=== PATIENT | male | born 1985 | race Caucasian/White ===

== ENCOUNTER 2017-05-17 08:40 | Day surgery (SDC) | payer OTHER ==
[~2017-05-17] VITALS: Ht 185.4 cm; Wt 93.0 kg
[~2017-05-17 08:40] MED LIST: VENLAFAXINE H37.5 M1 PO
--- NOTE | 2017-05-17 11:28 | NUR ---
05/17/17 1128 Yamel Sepulveda REPORT FROM ANALYTICAL MANAGER.
--- NOTE | 2017-05-17 12:29 | NUR ---
PT RETURNED FROM PACU. AWAKE AND ORIENTED. PT DENIES NAUSEA, TOLERATING PO FLUIDS. PT REPORTING 5/10 PAIN (SEE MAR FOR MEDICATION GIVEN). BED RAILS UP, CALL LIGHT WITHIN REACH. ICE ON OPERATIVE EXTREMITY AND EXTREMITY ABOVE THE LEVEL OF HEART RESTING ON PILLOWS.
--- NOTE | 2017-05-17 13:31 | NUR ---
1330-PATIENT UP TO BATHROOM VOIDED 450 ML'S YELLOW URINE. STEADY ON FEET. PATIENT REPORTS PAIN HAS DECREASED TO 5/10 AFTER BEING GIVEN PAIN PILL REPORTS COMFORTABLE. WATER AND CRACKERS GIVEN. PATIENT DENIES ANY REQUESTS AT THIS TIME.
--- NOTE | 2017-05-17 14:10 | NUR ---
PT STEADY ON FEET WITH ONE PERSON STAND BY ASSIST. PT REPORTING 4/10 PAIN THAT HE STATES IS TOLERABLE. PT DRESSES SELF. FRIEND AT BEDSIDE FOR DISCHARGE INSTRUCTIONS. PT AND FRIEND VERBALIZES UNDERSTANDING OF DISCHARGE INSTRUCTIONS.
--- NOTE | 2017-05-17 14:15 | OR ---
[facility] [address], [place] [address] Signed DATE OF PROCEDURE: 05/17/17 PREOPERATIVE DIAGNOSIS -punch fracture of the distal right radius with about 4 mm of lunate fossa impaction. POSTOPERATIVE DIAGNOSIS -punch fracture of the distal right radius with about 4 mm of lunate fossa impaction. PROCEDURE Open reduction and internal fixation, right wrist fracture. SURGEON: Aramis Woodward MD. ANESTHESIA: General. There were no specimens or complications. TOURNIQUET TIME: A little bit over an hour. DESCRIPTION OF PROCEDURE The patient was taken to the operating room. After anesthesia was induced and airway secured, the patient was positioned, prepped and draped in a routine sterile fashion. The arm was exsanguinated and Esmarch bandage, pneumatic tourniquet was inflated to 250 mmHg pressure. A volar incision was made directly over the distal radius in line with the FCR tendon, beginning at the distal wrist flexion crease extending proximally about 8 cm. Skin was divided sharply. Subcutaneous tissue was bluntly spread. The FCR tendon sheath was opened on the volar surface. We then swept the FCR and the volar contents in an ulnar direction and opened the deep layer. A small self-retaining retractor was placed and we elevated a small portion of the pronator off the distal radius. The fracture site was identified. It begin to partially consolidate. We therefore gently mobilized with some small Drew osteotomes. Once we gently mobilized with counter, we were actually able to move the articular fragment distally until we had reconstituted the articular surface. However, actually did a small release of the volar capsule and actually could see that we had realigned the articular surface. We then held it with a single bone-holding clamp and then secured it temporarily with a single 1.6 mm K-wire. Having temporarily fixed it, we then secured it permanently with an 8 x 3 distal volar radial plate. We will place 2 pins in the lateral articular fragment and we placed 1 pin in the proximal fragment that was still attached to the shaft. We then secured it with 3 screws proximally. The wound was gently irrigated. AP and lateral fluoroscopy showed good alignment and position of the fracture fragments and the internal fixation device. The patient's wound was irrigated, closed in standard fashion and a sterile dressing applied. He was placed in a volar splint, awakened to the recovery room where arrived in Electronically Signed By: ARAMIS WOODWARD MD 05/17/17 1415 PATIENT NAME: ALEENA DICKSON OPERATIVE REPORT DATE OF : 87 PHYSICIAN: ARAMIS WOODWARD MD REPORT #: [id number] REPORT IS CONFIDENTIAL AND NOT TO BE RELEASED WITHOUT AUTHORIZATION [facility] [address] [place] [id number] Signed stable condition. Counts were correct and antibiotic protocols were followed. MD CALEB Baugh/Coty /[id number] cc: SYLVIA Robles Electronically Signed By: ARAMIS WOODWARD MD 05/17/17 1415 PATIENT NAME: ALEENA DICKSON OPERATIVE REPORT DATE OF : 87 PHYSICIAN: ARAMIS WOODWARD MD REPORT #: [id number] REPORT IS CONFIDENTIAL AND NOT TO BE RELEASED WITHOUT AUTHORIZATION
== END 2017-05-17 14:10 | disposition home or self-care (01) ==
LOC: DS 08:40 → OPS 08:40 → DS 11:15 → OPS 14:10
PROVIDERS: Orthopaedic Surgery
PROC: 0PSH04Z Reposition Right Radius with Internal Fixation Device, Open Approach (ICD-10-PCS; principal; 2017-05-17 11:15)
DX: S52.501A Unspecified fracture of the lower end of right radius, initial encounter for closed fracture (principal); F41.9 Anxiety disorder, unspecified; W03.XXXA Other fall on same level due to collision with another person, initial encounter
CPT/HCPCS: 01830; 64417; 73110; 76942; C1713; J0330; J0690; J1100; J1885; J2250; J2270; J2405; J2704; J2795; J3010; J7120